=== PATIENT | female | born 1990 | race Two or more races ===

== ENCOUNTER 2020-06-23 12:01 | Emergency (ER) | payer OTHER ==
[~2020-06-23] VITALS: Ht 154.9 cm; Wt 46.6 kg
--- NOTE | 2020-06-23 12:31 | NUR ---
OPENING NOTE: PT ARRIVED WITH COMPLAINTS OF RIGHT FLANK PAIN AND URNIARY FREQUENCY. PT DX WITH UTI ON TURSDAY AND IS TAKING MACROBID PRESCRIBED. PT REPORTS CURRENTLY 16 WEEKS , NO PREGNACY RELATED COMPLAINTS. PT GIVEN GOWN AND HAS S.O. AT BEDSIDE. PT HOOKED UP TO CONTINIOUS BP AND O2 MONITOR. UA COLLECTED. RELL.
--- NOTE | 2020-06-23 12:52 | NUR ---
TASK RN: L&D FURNACE CLERK CONTACTED TO REQUEST HEART TONES. L&D RN TO COMPLETE HEART TONES SOON POSSIBLE.
[2020-06-23 13:00] LABS: MICROSCOPIC INDICATED
[2020-06-23] MEDS ORDERED: ONDANSETRON 2MG/ML, 2ML ONE (13:11)
[2020-06-23 13:20] LABS: BASOPHILS % (AUTO) 1 % (0-1); EOSINOPHILS % (AUTO) 0 % (1-7); LYMPHOCYTES % (AUTO) 6 % (22-44); MEAN CORPUSCULAR HEMOGLOBIN 30.1 pg (27.0-34.8); MEAN CORPUSCULAR HGB CONC 34.3 g/dL (32.4-35.8); MEAN PLATELET VOLUME 7.3 fL (7.4-10.4); MONOCYTES % (AUTO) 7 % (2-9); NEUTROPHILS % (AUTO) 86 % (42-75); PLATELET COUNT 200 x10^3/uL (130-400); RED BLOOD COUNT 4.07 x10^6/uL (3.82-5.3); RED CELL DISTRIBUTION WIDTH 13.2 % (9.6-15.2)
[2020-06-23 13:21] LABS: MD NO
[2020-06-23] MEDS ORDERED: ONDANSETRON 2MG/ML, 2ML IVPush ONE (13:30)
[2020-06-23] MEDS ORDERED: SODIUM CHLORIDE 0.9% 1,000ML IVBOLUS ONE (13:30)
[2020-06-23] MEDS ORDERED: SODIUM CHLORIDE FLUSH 10ML SYR IVF ONE (13:30)
[2020-06-23 13:31] LABS: ALANINE AMINOTRANSFERASE 40 U/L (12-78); ALBUMIN 3.4 g/dL (3.4-5.0); ANION GAP 8 mmol/L (5-15); CHLORIDE 104 mmol/L (98-107); CREATININE 0.64 mg/dL (0.55-1.02)
[2020-06-23 13:33] LABS: ALKALINE PHOSPHATASE 123 U/L (45-117); BILIRUBIN,TOTAL 0.5 mg/dL (0.2-1.0); TOTAL PROTEIN 7.8 g/dL (6.4-8.2)
--- NOTE | 2020-06-23 13:33 | NUR ---
Pt resting in bed with S.O. at bedside. Pt medicated per MAR and provided warm blanket for comfort. No other requests at this time.
[2020-06-23] MEDS ORDERED: POTASSIUM CHLORIDE 10% 40 MEQ/30 ML UDC PO ONE (14:00)
[2020-06-23] MEDS ORDERED: NS + 40MEQ KCL 0 ML IV ONE (14:16)
[2020-06-23] MEDS ORDERED: POTASSIUM CHLORIDE 20 MEQ PACKET ONE (14:17)
--- NOTE | 2020-06-23 14:22 | NUR ---
Pt medicated per JUN. Reports nausea resolved. Pt up and to bathroom.
--- NOTE | 2020-06-23 15:02 | NUR ---
Dr. Griffith at bedside to discuss POC with pt.
--- NOTE | 2020-06-23 15:53 | NUR ---
US in progress at this time, pt resting in bed, RELL.
[2020-06-23 16:31] VITALS: BP 99/62
== END 2020-06-23 16:34 | disposition home or self-care (01) ==
LOC: ED 12:45
DX: O26.892 Other specified pregnancy related conditions, second trimester (principal); Z3A.16 16 weeks gestation of pregnancy
CPT/HCPCS: 36415; 71045; 76700; 80053; 81001; 83690; 85025; 87086; 96361; 96374; 99285; J2405; J7030

== ENCOUNTER 2020-09-05 14:30 | Outpatient (CLI) | payer OTHER ==
[~2020-09-05] VITALS: Ht 154.9 cm; Wt 47.3 kg
[2020-09-05 14:43] VITALS: BP 83/48
[2020-09-05 16:15] LABS: MD YES; MEAN CORPUSCULAR HEMOGLOBIN 29.8 pg (27.0-34.8); MEAN CORPUSCULAR HGB CONC 33.7 g/dL (32.4-35.8); MEAN PLATELET VOLUME 5.8 fL (7.4-10.4); PLATELET COUNT 319 x10^3/uL (130-400); RED BLOOD COUNT 3.27 x10^6/uL (3.82-5.3); RED CELL DISTRIBUTION WIDTH 13.4 % (9.6-15.2)
[2020-09-05 16:28] LABS: ALANINE AMINOTRANSFERASE 29 U/L (12-78); ALBUMIN 2.4 g/dL (3.4-5.0); ANION GAP 9 mmol/L (5-15); CALCIUM 8.1 mg/dL (8.5-10.1); CHLORIDE 101 mmol/L (98-107)
[2020-09-05 16:30] LABS: ALKALINE PHOSPHATASE 321 U/L (45-117); BILIRUBIN,TOTAL 0.9 mg/dL (0.2-1.0)
[2020-09-05 16:32] LABS: LYMPH#(MANUAL) 0.23 x10^3/uL (1-3.4); LYMPHS% (MANUAL) 1 % (22-44); MONOS#(MANUAL) 1.36 x10^3/uL (0.3-2.7); MONOS% (MANUAL) 6 % (2-9); SEG#(MANUAL) 21.11 x10^3/uL (1.8-6.8); SEGS% (MANUAL) 93 % (42-75)
[2020-09-05 16:33] LABS: <PLATELET ESTIMATE> ADEQUATE; <PLT MORPHOLOGY> NORMAL PLT MORPH; <RBC MORPHOLOGY> NORMAL
[2020-09-05 16:42] LABS: MICROSCOPIC INDICATED
[2020-09-05] MEDS ORDERED: CEFD300C37 PO (17:32)
== END 2020-09-05 17:39 | disposition home or self-care (01) ==
LOC: LDOP 14:30
PROVIDERS: ATTEND Obstetrics & Gynecology Female Pelvic Medicine and Reconstructive Surgery
DX: O21.2 Late vomiting of pregnancy (principal); Z3A.26 26 weeks gestation of pregnancy
CPT/HCPCS: 36415; 80053; 81001; 85025; 87077; 87086; 87186; 87635; 96360; 99211; G0463

== ENCOUNTER 2020-09-10 11:11 | Observation (INO) | payer SELFPAY ==
[~2020-09-10] VITALS: Ht 154.9 cm; Wt 48.0 kg
[~2020-09-10 11:11] MED LIST: CEFD300C37 PO
[2020-09-10] MEDS ORDERED: ONDANSETRON 2MG/ML, 2ML IVPush PRN (11:30)
[2020-09-10] MEDS ORDERED: FENTANYL PF 100 MCG/2ML ONE (11:44)
[2020-09-10] MEDS ORDERED: ONDANSETRON 2MG/ML, 2ML ONE (11:44)
[2020-09-10] MEDS: LACTATED RINGERS 1,000 ML IV SCH ×2 (11:50→15:01)
[2020-09-10] MEDS: FENTANYL PF 100 MCG/2ML IV PRN ×2 (11:50→17:34)
[2020-09-10 12:00] VITALS: BP 100/55
[2020-09-10] MEDS ORDERED: PLEASE ENTER HEIGHT AND WEIGHT MC SCH (12:00)
[2020-09-10 12:02] LABS: MEAN CORPUSCULAR HGB CONC 34.3 g/dL (32.4-35.8); MEAN PLATELET VOLUME 5.9 fL (7.4-10.4); PLATELET COUNT 336 x10^3/uL (130-400); RED BLOOD COUNT 3.36 x10^6/uL (3.82-5.3); RED CELL DISTRIBUTION WIDTH 13.8 % (9.6-15.2)
[2020-09-10 12:09] LABS: ALANINE AMINOTRANSFERASE 12 U/L (12-78); ANION GAP 8 mmol/L (5-15); CALCIUM 8.3 mg/dL (8.5-10.1); CHLORIDE 104 mmol/L (98-107); CREATININE 0.44 mg/dL (0.55-1.02)
[2020-09-10 12:29] LABS: MD YES
[2020-09-10 12:32] LABS: <PLATELET ESTIMATE> ADEQUATE; <PLT MORPHOLOGY> NORMAL PLT MORPH; BAND#(MANUAL) 0.26 x10^3/uL; BANDS%(MANUAL) 3 % (0-7); LYMPH#(MANUAL) 0.79 x10^3/uL (1-3.4); LYMPHS% (MANUAL) 9 % (22-44); METAMYELOCYTES# (MANUAL) 0.18 x10^3/uL (0-0); METAMYELOCYTES% (MANUAL) 2 % (0-1); MONOS#(MANUAL) 0.18 x10^3/uL (0.3-2.7); MONOS% (MANUAL) 2 % (2-9); SEG#(MANUAL) 7.39 x10^3/uL (1.8-6.8); SEGS% (MANUAL) 84 % (42-75)
[2020-09-10 12:33] LABS: HYPOCHROMIA 1+
[2020-09-10] MEDS ORDERED: CEFOTETAN PMX 1GM/50ML 50 ML IV SCH (16:30)
[2020-09-10 16:56] LABS: AMPHETAMINE SCREEN, URINE Negative (Negative); BARBITURATE SCREEN, URINE Negative (Negative); BENZODIAZEPINE SCREEN, URINE Negative (Negative); CANNABINOID SCREEN, URINE Negative (Negative); COCAINE SCREEN, URINE Negative (Negative); METHADONE SCREEN, URINE Negative (Negative); OPIATE SCREEN, URINE Negative (Negative)
[2020-09-10] MEDS ORDERED: DIPHENHYDRAMINE 50 MG/ML, 1ML ONE (17:37)
[2020-09-10] MEDS ORDERED: DIPHENHYDRAMINE 50 MG/ML, 1ML IVPush ONE (18:00)
[2020-09-10] MEDS: NITROFURANTOIN (MACROBID) 100 MG CAPSULE PO SCH (22:30)
[2020-09-11] MEDS: LACTATED RINGERS 1,000 ML IV SCH (01:00)
[2020-09-11] MEDS ORDERED: NITROFURANTOIN (MACROBID) 100 MG CAPSULE ONE (10:43)
[2020-09-11] MEDS: NITROFURANTOIN (MACROBID) 100 MG CAPSULE PO SCH (10:50)
[2020-09-11] MEDS ORDERED: D5%-LACTATED RINGERS 1,000 ML IV SCH (11:00)
[2020-09-11] MEDS ORDERED: BUPIVACAINE/PF 0.5% ONE (15:35)
[2020-09-11] MEDS ORDERED: EPINEPHRINE 1 MG/ML, 1ML ONE (15:35)
[2020-09-11] MEDS ORDERED: FENTANYL PF 250 MCG/5ML ONE (17:18)
[2020-09-11] MEDS ORDERED: PROPOFOL 50 ML ONE (17:18)
[2020-09-11] MEDS ORDERED: CEFAZOLIN 1,000 MG ONE (17:24)
[2020-09-11] MEDS ORDERED: SUCCINYLCHOLINE 20 MG/ML, 10ML ONE (17:46)
[2020-09-11] MEDS ORDERED: PROPOFOL 10 MG/ML, 20ML ONE (17:46)
[2020-09-11] MEDS ORDERED: ONDANSETRON 2MG/ML, 2ML ONE (17:46)
[2020-09-11] MEDS ORDERED: EPHEDRINE 50 MG/ML, 1ML IM PRN (18:00)
[2020-09-11] MEDS ORDERED: OXYcodone 5 MG/5 ML ORAL.SOL UDC PO PRN (18:00)
[2020-09-11] MEDS ORDERED: MEPERIDINE/PF 25MG/0.5ML IVPush PRN (18:00)
[2020-09-11] MEDS ORDERED: FENTANYL PF 100 MCG/2ML IV PRN (18:00)
[2020-09-11] MEDS ORDERED: ACETAMINOPHEN 325 MG TABLET PO PRN (18:00)
[2020-09-11] MEDS ORDERED: PROMETHAZINE 25 MG/ML, 1ML IVPush PRN (18:00)
[2020-09-11] MEDS ORDERED: DIPHENHYDRAMINE 50 MG/ML, 1ML IVPush PRN (18:00)
[2020-09-11] MEDS ORDERED: ONDANSETRON 2MG/ML, 2ML IVPush PRN (18:00)
[2020-09-11] MEDS ORDERED: MEPERIDINE/PF 25MG/ML,1ML ONE (18:50)
[2020-09-11] MEDS ORDERED: HYDROmorphone 1 MG/ML, 1ML INJ ONE (19:09)
[2020-09-11] MEDS: HYDROmorphone 1 MG/ML, 1ML INJ IVPush PRN ×2 (19:11→23:30)
[2020-09-11] MEDS ORDERED: HYDROmorphone 2 MG/ML, 1ML ONE (22:34)
[2020-09-12 02:50] VITALS: BP 94/53
[2020-09-12] MEDS: HYDROmorphone 1 MG/ML, 1ML INJ IVPush PRN (04:00)
[2020-09-12] MEDS ORDERED: OXYcodone/APAP 5/325MG TABLET ONE (08:56)
[2020-09-12] MEDS ORDERED: OXYcodone/APAP 5/325MG TABLET PO PRN ×2 (09:00)
[2020-09-12] MEDS: NITROFURANTOIN (MACROBID) 100 MG CAPSULE PO SCH (09:02)
[2020-09-12] MEDS ORDERED: OXYC1TAB14 PO (12:38)
== END 2020-09-12 14:15 | disposition home or self-care (01) ==
LOC: LDOP 11:11 → EDIP 16:51 → LDIP 17:26 → INTOOBSV 20:33 → OBSVTOIN 20:33
PROVIDERS: ADMIT Obstetrics & Gynecology; ATTEND Obstetrics & Gynecology
DX: O99.612 Diseases of the digestive system complicating pregnancy, second trimester (principal); K80.00 Calculus of gallbladder with acute cholecystitis without obstruction; Z20.822 Contact with and (suspected) exposure to COVID-19; O23.42 Unspecified infection of urinary tract in pregnancy, second trimester; O21.2 Late vomiting of pregnancy; Z3A.24 24 weeks gestation of pregnancy; Z79.899 Other long term (current) drug therapy
CPT/HCPCS: 36415; 47562; 76700; 80048; 80307; 82150; 83690; 84450; 84460; 85025; 87635; 88304; 96361; 96365; 96366; 96375; 96376; G0378; J0171; J0330; J0690; J1170; J2175; J2405; J2704; J3010; J7120; J7121; S0020